=== PATIENT | male | born 1965 | race Asian ===

== ENCOUNTER 2023-02-12 06:59 | Day surgery (SDC) | payer OTHER ==
[~2023-02-12] VITALS: Ht 167.6 cm; Wt 53.6 kg
[~2023-02-12 06:59] MED LIST: SODIUM CHLORIDE 0.9% 0 ML ONE; [UNRECOGNIZED DRUG - REMARK]
[2023-02-12] MEDS ORDERED: SODIUM CHLORIDE 0.9% 1,000 ML IV ONE (07:00)
[2023-02-12] MEDS ORDERED: BENZOCAINE 20% 50 MCG/SPRAY 57 GM TP ONE (07:00)
[2023-02-12] MEDS ORDERED: LIDOCAINE 4% 50 ML SOLUTION TP ONE (07:00)
[2023-02-12] MEDS ORDERED: ALBUTEROL SULFATE 2.5 MG/0.5 ML NEB SOLUTION NEB ONE (07:00)
[2023-02-12] MEDS ORDERED: LIDOCAINE 2% 11 ML JELLY TP ONE (07:00)
[2023-02-12] MEDS ORDERED: AMLO-258 PO (07:26)
[2023-02-12] MEDS ORDERED: CETI-450 PO (07:26)
[2023-02-12] MEDS ORDERED: SODIUM CHLORIDE 0.9% 0 ML ONE (07:28)
[2023-02-12] MEDS ORDERED: PRED-729 PO (07:33)
[2023-02-12] MEDS ORDERED: TRAZ-257 PO (07:33)
[2023-02-12] MEDS ORDERED: SUCR1ORA15 PO (07:33)
[2023-02-12] MEDS ORDERED: OMEP20 PO (07:33)
[2023-02-12] MEDS ORDERED: FLUT16SP NASAL (07:33)
[2023-02-12] MEDS ORDERED: MONT-35 PO (07:33)
[2023-02-12] MEDS ORDERED: ALBU18HF12 IH (07:33)
[2023-02-12] MEDS ORDERED: TIOT185 IH (07:33)
[2023-02-12] MEDS ORDERED: IPRA0.2S49 NEB (07:33)
[2023-02-12] MEDS ORDERED: TRAM-559 PO (07:33)
[2023-02-12] MEDS ORDERED: MIDAZOLAM HCL 2 MG/2 ML VIAL ONE (07:38)
[2023-02-12] MEDS ORDERED: FentaNYL CITRATE PF 100 MCG/2 ML VIAL ONE (07:39)
[2023-02-12] MEDS ORDERED: SODIUM CHLORIDE 0.9% 1,000 ML ONE (08:54)
[2023-02-12 09:45] VITALS: PULSE 64; RESP 22; O2SAT 100
[2023-02-12] MEDS ORDERED: MethylPREDNISolone SOD SUCC 125 MG/2 ML VIAL IVP ONE (09:45)
[2023-02-12] MEDS ORDERED: MethylPREDNISolone SOD SUCC 125 MG/2 ML VIAL ONE (10:08)
== END 2023-02-12 10:50 | disposition home or self-care (01) ==
LOC: SURGERY 06:59
PROVIDERS: ATTEND Internal Medicine Critical Care Medicine
DX: J38.4 Edema of larynx (principal); B37.0 Candidal stomatitis; Z88.1 Allergy status to other antibiotic agents; F17.210 Nicotine dependence, cigarettes, uncomplicated; Z98.890 Other specified postprocedural states; G47.30 Sleep apnea, unspecified
CPT/HCPCS: 31623; 88112; 87206; 87101; 87220; 87070; 31624; 94640; 71045; 87015; J3010; J2250; J2930; Q9967; J7030; J7613; Z7610